=== PATIENT | male | born 1980 | race Caucasian/White ===

== ENCOUNTER 2017-07-07 15:48 | Emergency (ER) | payer SELFPAY ==
[~2017-07-07] VITALS: Ht 175.3 cm; Wt 72.6 kg
--- NOTE | 2017-07-07 16:14 | ED HAND/WRIST INJURY COMPLAINT ---
History of Present Illness General Chief Complaint: Hand or Wrist Injury Stated Complaint: PT HAS A CUT ON THE LT HAND Source: patient Exam Limitations: no limitations Vital Signs & Intake/Output Vital Signs & Intake/Output Vital Signs Date Time Temp Pulse Resp B/P B/P Pulse O2 O2 Flow FiO2 Mean Ox Delivery Rate 07/07 1727 88 16 122/72 98 Room Air 07/07 1554 87 15 117/69 97 Room Air Room Air Allergies Coded Allergies: No Known Allergies (07/07/17) Triage Note: PT TO ED FOR C/C OF LAC TO L HAND/2ND FINGER. PT CUT HAND ON METAL AT WORK. UNSURE OF LAST TETANUS SHOT. PT APPLIED DRESSING AT HOME, NO ACTIVE BLEEDING NOTED. Triage Nurses Notes Reviewed? yes Occurred: just prior to arrival Duration: hour(s): Timing: single episode today Injury Environment: work Severity: moderate Pain/Injury Location: Left: Hand. Context: laceration Method of Injury: laceration HPI: 36yo male presents emergency department complaining of laceration to left dorsal hand sustained at work today. Patient states that he cut hand on piece of new sheet metal. Patient applied bandage and came into the emergency department. Pain at site is worse with movement of his second digit. Patient is unsure of his last tetanus vaccine. He denies numbness, tingling. (Brionna Simms) Past History Travel History Traveled to [place] past 21 day No Medical History Any Pertinent Medical History? 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 No (Brionna Simms) Review of Systems Review of Systems Constitutional: Reports: no symptoms. EENTM: Reports: no symptoms. Respiratory: Reports: no symptoms. Cardiovascular: Reports: no symptoms. GI: Reports: no symptoms. Genitourinary: Reports: no symptoms. Musculoskeletal: Reports: see HPI. Skin: Reports: see HPI. Neurological/Psychological: Reports: no symptoms. Hematologic/Endocrine: Reports: no symptoms. Immunologic/Allergic: Reports: no symptoms. All Other Systems: Reviewed and Negative (Brionna Simms) Physical Exam Physical Exam General Appearance: well developed/nourished, no apparent distress, alert, awake Head: atraumatic, normal appearance Eyes: Bilateral: normal appearance. Ears, Nose, Throat: hearing grossly normal Neck: normal inspection, supple, full range of motion Cardiovascular/Respiratory: normal peripheral pulses, no respiratory distress Back: normal inspection, normal range of motion Shoulder Left: normal range of motion, normal inspection Shoulder Right: normal range of motion, normal inspection Elbow Left: normal range of motion, normal inspection Elbow Right: normal range of motion, normal inspection Forearm Left: normal range of motion, normal inspection Forearm Right: normal range of motion, normal inspection Wrist Left: normal range of motion, normal inspection Wrist Right: normal range of motion, normal inspection Hand Left: 1.5 cm linear laceration to dorsal hand over 2nd MCP joint, ROM at 2nd digit intact, sensation intact Hand Right: normal inspection, normal range of motion Neurologic/Tendon: normal sensation, normal motor functions, normal tendon functions Skin: see laceration above (Brionna Simms) Progress Differential Diagnosis: contusion, fracture, sprain, laceration Plan of Care: Laceration closed with 2 stitches. Patient placed in finger splint to avoid bending at the MCP joint and wrist breaking stitches. Patient to return in 7-10 days for removal of stitches. He was educated on signs and symptoms of infection. No tendon was visualized, patient with good range of motion and sensation. Patient informed that tendon injury is unlikely however possible, patient informed if he has difficulty with range of motion or healing he will require follow-up with hand specialist. Patient tolerated procedure well. The patient agrees with the plan of care. No bony tenderness at this time, x-ray deferred given superficial laceration. (Brionna Simms) Departure Departure Disposition: HOME OR SELF CARE Condition: Stable Clinical Impression Primary Impression: Laceration Referrals: Jatinder Kumar DO (PCP/Family) Additional Instructions: Monitor for signs of infection including redness, swelling, increasing pain. Return with any of the symptoms. Otherwise return in 7-10 days for removal of stitches. Wear splint to prevent bending at this joint. You may apply bacitracin daily. Rinsed with soap and water, do not scrub stitches. Please note that there might be incidental findings in your evaluation that are unrelated to the current emergency department visit. Please notify your primary care doctor about this emergency department visit in order to obtain and review all of the testing performed so that these incidental findings can be monitored as needed. If you had an x-ray performed, please understand that some fractures may not be seen on the initial set of x-rays. If your symptoms persist you might need a repeat set of x-rays to check for such a fracture. If you had a laceration evaluated, please understand that foreign bodies such as glass or wood may not be visible to the naked eye or on plain x-rays. If the wound becomes red, swollen, increasingly more painful or if there is any drainage from the wound, please have it reevaluated by a physician for the possibility of a retained foreign body. If you're unable to follow up as outlined in the discharge instructions please return to the emergency department. Thank you for choosing the [facility] Emergency Department for your care. It was a pleasure to serve you today. Departure Forms: Customer Survey General Discharge Information (Rosana HERNANDEZ,Brionna Barney) PA/CELL LINER Co-Sign Statement Statement: ED Attending supervision documentation- [] I saw and evaluated the patient. I have also reviewed all the pertinent lab results and diagnostic results. I agree with the findings and the plan of care as documented in the PA's/CELL LINER's documentation. [X] I have reviewed the ED Record and agree with the PA's/CELL LINER's documentation. [] Additions or exceptions (if any) to the PAs/CELL LINER's note and plan are summarized below: [] (Ulises BERNARD,Michelle) Procedures Laceration/Wound Repair Laceration/Wound Repair: Wound Location: left hand Wound's Depth, Shape: linear Wound Length (cm): 1.5 Wound Explored: irrigated extensively Irrigated w/ Saline (ccs): 600 Betadine Prep? Yes Anesthesia: 1% lidocaine Volume Anesthetic (ccs): 5 Wound Repaired With: sutures Suture Size/Type: 4:0, nylon Number of Sutures: 2 Splint Applied? Yes By Who? by me Type of Splint Applied: finger Date of Last Tetanus: 07/07/17 Tetanus Status: up to date Progress: Patient tolerated procedure well. (Brionna Simms)
[2017-07-07 17:27] VITALS: BP 122/72
== END 2017-07-07 17:42 ==
LOC: ERH 15:48
DX: S61.412A Laceration without foreign body of left hand, initial encounter (principal); W45.8XXA Other foreign body or object entering through skin, initial encounter; Y93.89 Activity, other specified; Y92.89 Other specified places as the place of occurrence of the external cause; Y99.8 Other external cause status
CPT/HCPCS: 90471; 90714; 99281; J2001